=== PATIENT | female | born 2005 ===

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

== ENCOUNTER 2025-02-25 13:57 | Emergency (ER) | payer BC ==
[~2025-02-25] VITALS: Ht 160 cm; Wt 54.3 kg
[2025-02-25 16:31] VITALS: BP 127/75; PULSE 67; RESP 12; TEMP 98.6; O2SAT 98
--- NOTE | 2025-02-25 16:35 | ED.PDOC ---
Brandon. trauma (HPI) HPI Comments 19F presents to the ER w/ no prior MHx associated to the c/c of UE. Pt reports that she was wrestling w/ her brother when the pt landed onto her right shoulder and her brother landed on top of the pt. Pt currently has pain on the right shoulder due from the trauma. Denies chills, fever, N/V/D, SOB, CP. Denies any other associated symptom's, modifiers, or recent injuries or sick contact at this time. Chief Complaint: Upper Extremity Time Seen by MD: 15:25 Reviewed notes: Nurses Notes, Medications, Allergies Allergies: Coded Allergies: NO KNOWN ALLERGIES (Unverified , 02/25/25) Information Source: Patient Mode of Arrival: Ambulatory Severity: Moderate Timing: Minutes Duration: Since onset, Minutes Prehospital treatment: None Location: (R) Shoulder Location of laceration: None Mechanism: Fall (due from wrestling with brother) Associated signs and symtoms: None Past Medical History PAST MEDICAL HISTORY: Denies Surgical History: Denies all surgeries [employer] History: No Pertinent [employer] History Family History Family History: Reviewed,noncontributory to illness, Unknown Social History Smoker: Non-Smoker Alcohol: Denies ETOH Use Drugs: Denies Drug Use Lives In: Home Constitutional: denies: chills, diaphoresis, fatigue, fever, malaise, sweats, weakness, others EENTM: denies: blurred vision, double vision, ear bleeding, ear discharge, ear drainage, ear pain, ear ringing, eye pain, eye redness, hearing loss, mouth pain, mouth swelling, nasal discharge, nose bleeding, nose congestion, nose pain, photophobia, tearing, throat pain, throat swelling, voice changes, others Respiratory: denies: cough, hemoptysis, orthopnea, SOB at rest, shortness of breath, SOB with excertion, stridor, wheezing, others Cardiovascular: denies: chest pain, dizzy spells, diaphoresis, Dyspnea on exertion, edema, irregular heart beat, left arm pain, lightheadedness, palpitations, PND, syncope, others Gastrointestinal: denies: abdomen distended, abdominal pain, blood streaked bowels, constipated, diarrhea, dysphagia, difficulty swallowing, hematemesis, melena, nausea, poor appetite, poor fluid intake, rectal bleeding, rectal pain, vomiting, others Genitourinary: denies: abnormal vagina bleeding, burning, dyspareunia, dysuria, flank pain, frequency, hematuria, incontinence, pain, , vagina discharge, urgency, others Neurological: denies: dizziness, fainting, headache, left sided numbness, left sided weakness, numbness, paresthesia, pre-existing deficit, right sided numbness, right sided weakness, seizure, speech problems, tingling, tremors, weakness, others Musculoskeletal: reports: others (right shoulder pain); denies: back pain, gout, joint pain, joint swelling, muscle pain, muscle stiffness, neck pain Integumetry: denies: bruises, change in color, change in hair/nails, dryness, laceration, lesions, lumps, rash, wounds, others Allergic/Immunocompromised: denies: Difficulty Healing, Frequent Infections, Hives, Itching, others Hematologic/Lymphatic: denies: anemia, blood clots, easy bleeding, easy bruising, swollen glands, others Endocrine: denies: excessive hunger, excessive sweating, excessive thirst, excessive urination, flushing, intolerance to cold, intolerance to heat, unexplained weight gain, unexplained weight loss, others Psychiatric: denies: anxiety, bipolar disorder, depression, hopeless, panic disorder, schizophrenia, sleepless, suicidal, others All Other Systems: Reviewed and Negative Physical Exam General Appearance: Moderate Distress, Normal HEENT: Normal ENT Inspection, PERRL/EOMI, Pharynx Normal, TMs Normal Neck: Full Range of Motion, Non-Tender, Normal, Normal Inspection Respiratory: Chest Non-Tender, Lungs Clear, No Accessory Muscle Use, No Respiratory Distress, Normal Breath Sounds Cardiovascular: No Edema, No JVD, No Murmur, No Gallop, Normal Peripheral Pulses, Regular Rate/Rhythm Breast Exam: Deferred Gastrointestinal: No Organomegaly, Non Tender, No Pulsatile Mass, Normal Bowel Sounds, Soft Genitalia: Deferred Pelvic: Deferred Rectal: Deferred Extremities: Decreased range of motion, Inflammation, No calf tenderness, Normal capillary refill, Normal inspection, No pedal edema, Swelling, Tender Musculoskeletal : Location: Left Extremity Location: Shoulder Apperance: Swelling, Limited ROM, Tenderness: Moderate Neurologic: Alert, jewellery designer II-XII nml as Tested, No Motor Deficits, Normal Affect, Normal Mood, No Sensory Deficits Cerebellar Function: Normal Reflexes: Normal Skin: Dry, Normal Color, Warm Peripheral Pulses: 1+ carotid (R), 1+ carotid (L) Lymphatic: No Adenopathy Was a procedure done? Was a procedure done?: No Differential Diagnosis Multiple Trauma: Fractures, Contusion Neck Injury: N/A X-Ray, Labs, Meds, VS Vital Signs Date Time Temp Pulse Resp B/P (MAP) Pulse Ox O2 Delivery O2 Flow Rate FiO2 02/25/25 16:31 98.6 67 12 127/75 (92) 98 98.6 02/25/25 14:00 98.2 65 16 149/86 (107) 98 98.2 X-Ray, Labs, Meds, VS Comment Course in the emergency department eventful patient came in because of severe pain to the right shoulder after falling one playing She is complaining mostly of right shoulder pain difficult to move no deformity The x-ray is normal no fracture no dislocation Patient will have a sling and she will get medication until she feels better Time of 1ST Reevaluation: 15:55 Reevaluation 1ST: Unchanged Patient Education/Counseling: Diagnosis, Treatment, Prognosis Family Education/Counseling: No Family Present Departure 1 Departure Time of Disposition: 17:26 Impression: Primary Impression: Contusion of right shoulder Qualified Codes: S40.011A - Contusion of right shoulder, initial encounter Disposition: HOME / SELF CARE / HOMELESS Condition: Good Additional Instructions: Hot showers Follow up with your PCP If not better or worse you may need an MRI e-Prescriptions Cyclobenzaprine Hcl (Cyclobenzaprine Hcl) 10 Mg Tab 10 MG PO TID for 10 Days, #30 TAB Prov: MICHAEL CHI MD 02/25/25 Diclofenac Potassium (Diclofenac Potassium) 50 Mg Tab 1 TAB PO TIDP for 10 Days, #30 TAB Prov: MICHAEL CHI MD 02/25/25 Discharged With: Self, Relative (Mother) Critical Care Note Critical Care Time?: No Stability Stability form required: No Heart Score Heart Score: Heart Score Response (Comments) Value History N/A 0 EKG N/A 0 Age <45 0 Risk Factors No known risk factors 0 Troponin N/A 0 Total 0 I personally scribed for MICHAEL CHI MD ([email or web address]) on 02/25/25 at 16:35. Electronically submitted by Alan Massey ([email or web address]). MICHAEL CHI MD February 25, 2025 16:35
[2025-02-25] MEDS ORDERED: CYCL-839 PO (17:28)
[2025-02-25] MEDS ORDERED: DICL50TA2 PO (17:28)
== END 2025-02-25 17:59 | disposition home or self-care (01) ==
LOC: ER 14:04
DX: S40.011A Contusion of right shoulder, initial encounter (principal); X58.XXXA Exposure to other specified factors, initial encounter; Y93.72 Activity, wrestling; Y92.89 Other specified places as the place of occurrence of the external cause; Y99.8 Other external cause status

== ENCOUNTER → 2025-04-27 | Outpatient (CLI) | payer BC ==
[~2025-04-27] MED LIST: CYCL-839 PO; DICL50TA2 PO
[2025-04-27 14:14] LABS: Hematocrit 42.1 % (36.0-46.0); Hemoglobin 14.2 g/dL (12.2-16.2); Mean Corpuscular Hemoglobin 29.1 pg (28.0-32.0); Mean Corpuscular Volume 86.1 fL (80.0-100.0); Nucleated Red Blood Cells % 0.0 %
[2025-04-27 14:30] LABS: Alkaline Phosphatase 63 U/L (46-116); Anion Gap 8 (5-15); BUN/Creatinine Ratio 12.3 (10.0-20.0); Bilirubin, Total 0.5 mg/dL (0.2-1.0); Blood Urea Nitrogen 9 mg/dL (9-23); Calcium 9.8 mg/dL (8.7-10.4); Carbon Dioxide 24 mmol/L (20-31); Glucose 85 mg/dL (74-106); Potassium 4.0 mmol/L (3.5-5.1); Sodium 140 mmol/L (136-145); Total Protein 7.3 g/dL (5.7-8.2); Triglycerides 95 mg/dL (< 150)
[2025-04-27 14:31] LABS: Alanine Aminotransferase 138 U/L (7-40); Albumin 4.8 g/dL (3.2-4.8); Chloride 108 mmol/L (98-107); Cholesterol 205 mg/dL (< 200); HDL Cholesterol 65 mg/dL (40-59)
== END | disposition home or self-care (01) ==
LOC: LAB 13:42
PROVIDERS: ATTEND Nurse Practitioner Family
DX: E78.5 Hyperlipidemia, unspecified (principal); E55.9 Vitamin D deficiency, unspecified; Z00.01 Encounter for general adult medical examination with abnormal findings
CPT/HCPCS: 36415; 80053; 80061; 82306; 84443; 85025